=== PATIENT | male | born 2000 | race Caucasian/White ===

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

== ENCOUNTER 2025-01-29 20:22 | Emergency (ER) | payer OTHER ==
[~2025-01-29] VITALS: Ht 172.7 cm; Wt 85.0 kg
[~2025-01-29 20:22] MED LIST: KEFLEX500 MG PO; NORCO 5-325 TA1 EACH PO
[2025-01-29] MEDS ORDERED: TOPIRAMATE25 M1 PO (20:52)
[2025-01-29] MEDS ORDERED: RIZATRIPTAN10 M1 PO (20:52)
[2025-01-29] MEDS ORDERED: IBLOOD GLUCOSE TEST STRIP 1 EA TEST XX ONE (21:00)
[2025-01-29 21:06] LABS: EOSINOPHILS 1.9 % (0.8-7.0); NEUTROPHILS 64.3 % (34.0-67.9)
[2025-01-29 21:09] LABS: BASOPHILS 0.7 % (0.2-1.2); LYMPHOCYTES 24.0 % (21.8-53.1); MCH 28.1 PG (25.7-32.2); MCHC 34.0 g/dL (32.3-36.5); MCV 82.6 fL (79.0-92.2); MONOCYTES 8.7 % (5.3-12.2); RBC 6.16 M/uL (4.63-6.08)
[2025-01-29 21:21] LABS: SMEAR REVIEW BLOOD SEE COMMENTS
[2025-01-29 21:25] LABS: ALT (SGPT) 33.0 U/L (14-59); AST (SGOT) 27.0 U/L (15-37); GLOMERULAR FILTRATION RATE,EST 115.0 mL/min (>60); PROTEIN, TOTAL 7.4 g/dL (6.4-8.2); UREA NITROGEN 19.0 mg/dL (7-18)
[2025-01-29] MEDS ORDERED: ACETAMINOPHEN 500 MG TAB PO ONE (22:15)
[2025-01-29] MEDS ORDERED: KETOROLAC TROMETHAMINE 30 MG/ML VIAL IV ONE (23:45)
[2025-01-29] MEDS ORDERED: PROCHLORPERAZINE EDISYLATE 10 MG/2 ML VIAL IV ONE (23:45)
[2025-01-30 00:43] VITALS: BP 138/93
--- NOTE | 2025-01-30 18:49 | EKG ---
[facility] [address] [facility] [place] [address] Signed Normal sinus rhythm with sinus arrhythmia Normal ECG No previous ECGs available Confirmed by Valeriy Patterson DO ([id number]) on 01/30/2025 6:49:37 PM Electronically Signed By: VALERIY PATTERSON DO 01/30/25 1849 PATIENT NAME: ZENON MONSON SAEED Electrocardiogram DATE OF : [birth year] PHYSICIAN: VALERIY PATTERSON DO REPORT #: [id number] REPORT IS CONFIDENTIAL AND NOT TO BE RELEASED WITHOUT AUTHORIZATION
== END 2025-01-30 00:51 | disposition home or self-care (01) ==
LOC: ED 20:22
PROVIDERS: Internal Medicine
DX: R55 Syncope and collapse (principal); R51.9 Headache, unspecified; Z79.899 Other long term (current) drug therapy
CPT/HCPCS: 36415; 70450; 80053; 83735; 84484; 85025; 85060; 93005; 93010; 93242; 93244; 96374; 96375; 99284-25; A9270; J0780; J1200; J1885